=== PATIENT | male | born 1980 | race Hispanic/Latino ===

== ENCOUNTER 2017-11-06 23:36 | Emergency (ER) | payer OTHER, SELFPAY ==
[2017-11-07 00:06] LABS: Absolute Lymphocytes (CBC) 3.1 K/uL (0.7-4.9); Absolute Neutrophil 6.2 K/uL (1.8-8.0); Basophils % 0.3 % (0-1.3); Eosinophils % 2.9 % (0-4.4); Hematocrit 44.8 % (39.6-49.0); Lymphocytes % 29.2 % (15.3-44.8); MCH 31.7 pg (27.0-35.0); MCV 92.9 fL (80-100); MPV 9.8 fL (7.6-11.3); Monocytes % 9.1 % (3.3-12.3); RBC Red Blood Cell Count 4.83 M/uL (4.33-5.43)
[2017-11-07 00:27] LABS: BUN Blood Urea Nitrogen 14 mg/dL (7-18); Bicarbonate 27 mmol/L (21-32); Glucose Level 97 mg/dL (74-106); Potassium 4.2 mmol/L (3.5-5.1); Sodium Level 138 mmol/L (136-145); Troponin (Emerg Dept Use Only) < 0.02 ng/mL (0.0-0.045)
--- NOTE | 2017-11-07 00:45 | EDPHYS ---
Physician Documentation [facility] Name: Gerard العراقي Age: 37 yrs Sex: Male : 1980 Arrival Date: 11/06/2017 Time: 23:36 Bed 24 Private MD: ED Physician Jaime Garibay HPI: 11/06 23:52 This 37 yrs old Male presents to ER via Unassigned with complaints of Chest rn Pain > 30 y/o. 23:52 The patient or guardian reports chest pain that is located primarily in the anterior rn chest wall, right. The pain does not radiate. Associated signs and symptoms: Pertinent positives: shortness of breath, Pertinent negatives: abdominal pain, cough, diaphoresis, dizziness, headache, lower extremity pain, lower extremity swelling, lightheadedness, nausea, near syncope, palpitations, syncope, vomiting. The chest pain is described as sharp, stabbing. Duration: The patient or guardian reports a single episode, that is still ongoing. Severity of pain: At its worst the pain was moderate in the emergency department the pain is unchanged. The patient has experienced a previous episode. Reports right sided anterior chest pain since this AM, no fever/cough, mild sob, no trauma, no famhx of early cardiac problems, had some mid abd pain yesterday but went to bathroom and went away. . Historical: - Allergies: 23:59 No Known Allergies; aa1 - Home Meds: 23:59 None [Active]; aa1 - PMHx: 23:59 None; aa1 - PSHx: 23:59 None; aa1 - Immunization history:: Flu vaccine is not up to date. - Social history:: Smoking status: Patient/guardian denies using tobacco. - Family history:: not pertinent. - Ebola Screening: : No symptoms or risks identified at this time. - Hospitalizations: : No recent hospitalization is reported. ROS: 23:52 Constitutional: Negative for fever, chills, and weight loss, Eyes: Negative for injury, rn pain, redness, and discharge, Neck: Negative for injury, pain, and swelling, Cardiovascular: Negative for palpitations, and edema, Respiratory: Negative for cough, wheezing Abdomen/GI: Negative for abdominal pain, nausea, vomiting, diarrhea, and constipation, MS/Extremity: Negative for injury and deformity, Skin: Negative for injury, rash, and discoloration, Neuro: Negative for headache, weakness, numbness, tingling, and seizure. Exam: 23:52 Constitutional: This is a well developed, well nourished patient who is awake, alert, rn and in no acute distress. Head/Face: Normocephalic, atraumatic. Eyes: Pupils equal round and reactive to light, extra-ocular motions intact. Lids and lashes normal. Conjunctiva and sclera are non-icteric and not injected. Cornea within normal limits. Periorbital areas with no swelling, redness, or edema. Neck: Trachea midline, no thyromegaly or masses palpated, and no cervical lymphadenopathy. Supple, full range of motion without nuchal rigidity, or vertebral point tenderness. No Meningismus. Chest/axilla: Normal chest wall appearance and motion. Nontender with no deformity. No lesions are appreciated. Cardiovascular: Regular rate and rhythm with a normal S1 and S2. No gallops, murmurs, or rubs. Normal PMI, no JVD. No pulse deficits. Respiratory: Lungs have equal breath sounds bilaterally, clear to auscultation and percussion. No rales, rhonchi or wheezes noted. No increased work of breathing, no retractions or nasal flaring. Abdomen/GI: Soft, non-tender, with normal bowel sounds. No distension or tympany. No guarding or rebound. No evidence of tenderness throughout. Skin: Warm, dry with normal turgor. Normal color with no rashes, no lesions, and no evidence of cellulitis. MS/ Extremity: Pulses equal, no cyanosis. Neurovascular intact. Full, normal range of motion. Equal circumference. Neuro: Awake and alert, GCS 15, oriented to person, place, time, and situation. Cranial nerves II-XII grossly intact. Motor strength 5/5 in all extremities. Sensory grossly intact. Cerebellar exam normal. Normal gait. Vital Signs: 23:48 BP 172 / 106; Pulse 66; Resp 16; Temp 97.7; Pulse Ox 96% on R/A; Weight 97.52 kg; aa1 Height 5 ft. 11 in. (180.34 cm); Pain 8/10; 11/07 00:53 BP 104 / 82; Pulse 59; Resp 16; Pulse Ox 98% on R/A; Pain 5/10; aa1 11/06 23:48 Body Mass Index 29.99 (97.52 kg, 180.34 cm) aa1 MDM: 11/06 23:46 Patient medically screened. rn 11/07 00:43 Differential diagnosis: acute myocardial infarction, acute pericarditis, anxiety, rn coronary artery disease chest wall pain, esophagitis, gastritis, gastroesophageal reflux disease (GERD), pleurisy, pneumothorax, pulmonary embolus. Data reviewed: vital signs, nurses notes, lab test result(s), EKG, radiologic studies, plain films, and as a result, I will discharge patient. Counseling: I had a detailed discussion with the patient and/or guardian regarding: the historical points, exam findings, and any diagnostic results supporting the discharge/admit diagnosis, the presence of at least one elevated blood pressure reading (>120/80) during this emergency department visit, lab results, radiology results, the need for outpatient follow up, to return to the emergency department if symptoms worsen or persist or if there are any questions or concerns that arise at home. Special discussion: I discussed with the patient/guardian in detail that at this point there is no indication for admission to the hospital. It is understood, however, that if the symptoms persist or worsen the patient needs to return immediately for re-evaluation. Based on the history and exam findings, there is no indication for further emergent testing or inpatient evaluation. I discussed with the patient/guardian the need to see the primary care provider for further evaluation of the symptoms. ED course: Pt with normal d-dimer, neg trop, ECG shows LVH but no ischemia, will dc home with OTC meds and pcp/cardiology f/u if symptoms do not improve. BP improved without medication/intervention. . 11/06 23:52 Order name: CBC with Diff; Complete Time: 00:13 rn 11/06 23:52 Order name: Basic Metabolic Panel; Complete Time: 00:27 rn 11/06 23:52 Order name: D-Dimer; Complete Time: 00:13 rn 11/06 23:52 Order name: Troponin (emerg Dept Use Only); Complete Time: 00:27 rn 11/06 23:52 Order name: EKG; Complete Time: 23:52 rn 11/06 23:52 Order name: XRAY Chest Pa And Lat (2 Views) rn 11/06 23:52 Order name: IV Start; Complete Time: 23:55 rn 11/06 23:52 Order name: EKG - Nurse/Tech; Complete Time: 23:52 rn Administered Medications: No medications were administered Disposition: 11/07/17 00:45 Discharged to Home. Impression: Chest pain, unspecified. - Condition is Stable. - Discharge Instructions: Nonspecific Chest Pain, Chest Wall Pain. - Medication Reconciliation Form, Thank You Letter, Antibiotic Education, Prescription Opioid Use form. - Follow up: Private Physician; When: As needed; Reason: Recheck today's complaints, Re-evaluation by your physician. - Problem is new. - Symptoms are unchanged. Signatures: Dispatcher [employer] EDMS Reina Turpin RN RN aa1 Jaime Garibay MD MD employee benefits attorney: (The following items were deleted from the chart) 00:55 00:45 11/07/2017 00:45 Discharged to Home. Impression: Chest pain, unspecified. aa1 Condition is Stable. Forms are Medication Reconciliation Form, Thank You Letter, Antibiotic Education, Prescription Opioid Use. Follow up: Private Physician; When: As needed; Reason: Recheck today's complaints, Re-evaluation by your physician. Problem is new. Symptoms are unchanged. rn
--- NOTE | 2017-11-07 00:45 | ER ---
Nurse's Notes [facility] Name: Gerard العراقي Age: 37 yrs Sex: Male : 1980 Arrival Date: 11/06/2017 Time: 23:36 Bed 24 Private MD: Diagnosis: Chest pain, unspecified Presentation: 11/06 23:48 Presenting complaint: Patient states: he woke up this morning with a sharp pain in his aa1 R upper chest. Denies injury. Reports pain is aggravated with ROM of R arm and radiates to back. Denies fever, cough, SOB or N/V. Transition of care: patient was not received from another setting of care. Onset of symptoms was November 06, 2017. Risk Assessment: Do you want to hurt yourself or someone else? Patient reports no desire to harm self or others. Initial Sepsis Screen: Does the patient meet any 2 criteria? No. Patient's initial sepsis screen is negative. Does the patient have a suspected source of infection? No. Patient's initial sepsis screen is negative. Care prior to arrival: None. 23:48 Method Of Arrival: Ambulatory aa1 23:48 Acuity: POLI 3 aa1 Historical: - Allergies: 23:59 No Known Allergies; aa1 - Home Meds: 23:59 None [Active]; aa1 - PMHx: 23:59 None; aa1 - PSHx: 23:59 None; aa1 - Immunization history:: Flu vaccine is not up to date. - Social history:: Smoking status: Patient/guardian denies using tobacco. - Family history:: not pertinent. - Ebola Screening: : No symptoms or risks identified at this time. - Hospitalizations: : No recent hospitalization is reported. Screenin:50 Abuse screen: Denies threats or abuse. Denies injuries from another. Nutritional aa1 screening: No deficits noted. Tuberculosis screening: No symptoms or risk factors identified. Fall Risk None identified. Assessment: 23:50 General: Appears in no apparent distress. comfortable, Behavior is calm, cooperative, aa1 appropriate for age. Pain: Complains of pain in right clavicle and anterior aspect of right upper chest Pain radiates to back Pain currently is 8 out of 10 on a pain scale. Quality of pain is described as sharp, Pain began this morning Is continuous, Aggravated by repositioning. Neuro: Level of Consciousness is awake, alert, obeys commands, Oriented to person, place, time, situation, Moves all extremities. Full function Gait is steady, Speech is normal. Cardiovascular: Reports chest pain, Denies diaphoresis, lightheadedness, nausea, palpitations, shortness of breath, Heart tones S1 S2 present Capillary refill < 3 seconds Clubbing of nail beds is absent JVD is absent Patient's skin is warm and dry. Rhythm is regular Chest pain is described as vague, is located in right anterior chest wall. Respiratory: Airway is patent Respiratory effort is even, unlabored, Respiratory pattern is regular, symmetrical, Breath sounds are clear bilaterally. GI: No signs and/or symptoms were reported involving the gastrointestinal system. : No signs and/or symptoms were reported regarding the genitourinary system. EENT: No signs and/or symptoms were reported regarding the EENT system. Derm: Skin is intact, is healthy with good turgor, Skin is pink, warm \T\ dry. 11/07 00:53 Reassessment: Patient appears in no apparent distress at this time. Patient is alert, aa1 oriented x 3, equal unlabored respirations, skin warm/dry/pink. Discussed d/c \T\ f/u instructions with pt \T\ spouse; denies questions or concerns at this time Patient states feeling better. Vital Signs: 11/06 23:48 BP 172 / 106; Pulse 66; Resp 16; Temp 97.7; Pulse Ox 96% on R/A; Weight 97.52 kg; aa1 Height 5 ft. 11 in. (180.34 cm); Pain 8/10; 11/07 00:53 BP 104 / 82; Pulse 59; Resp 16; Pulse Ox 98% on R/A; Pain 5/10; aa1 11/06 23:48 Body Mass Index 29.99 (97.52 kg, 180.34 cm) aa1 ED Course: 11/06 23:36 Patient arrived in ED. am2 23:46 Jaime Garibay MD is Attending Physician. rn 23:48 Arm band placed on right wrist. Patient placed in an exam room, on a stretcher. aa1 23:50 Patient has correct armband on for positive identification. Placed in gown. Bed in low aa1 position. Call light in reach. radiation monitor on. Pulse ox on. NIBP on. 23:50 EKG done, by ED staff, reviewed by Jaime Garibay MD. Initial lab(s) drawn, by ED staff, aa1 sent to lab. Inserted saline lock: 20 gauge in left antecubital area, using aseptic technique. Blood collected. Patient maintains SpO2 saturation greater than 95% on room air. 23:52 Reina Turpin, RN is Primary Nurse. aa1 23:58 Triage completed. aa1 11/07 00:04 Patient moved to radiology via wheelchair. az 00:04 X-ray completed. Patient tolerated procedure well. az 00:09 XRAY Chest Pa And Lat (2 Views) In Process Unspecified. EDMS 00:53 No provider procedures requiring assistance completed. IV discontinued, intact, aa1 bleeding controlled, No redness/swelling at site. Pressure dressing applied. Administered Medications: No medications were administered Outcome: 00:45 Discharge ordered by . rn 00:53 Discharged to home ambulatory, with significant other. aa1 00:53 Condition: good 00:53 Discharge instructions given to patient, significant other, Instructed on discharge instructions, follow up and referral plans. Demonstrated understanding of instructions, follow-up care. 00:55 Patient left the ED. aa1 Signatures: Dispatcher [employer] EDMS Reina Turpin, FELECIA IZQUIERDO aa1 Jaime Garibay MD MD rn Moreno, Amanda amCharisse Kinsey dc
[2017-11-07 01:00] VITALS: TEMP 97.7
[2017-11-07 01:01] VITALS: BP 104/82; O2SAT 98
--- NOTE | 2017-11-07 06:47 | EKG ---
Test Date: 2017-11-06 Test Time: 23:52:11 Vending Machine Filler: MICHAEL MEASUREMENT RESULTS: Intervals: Rate: 62 TX: 146 QRSD: 88 QT: 402 QTc: 408 [place]: P: 13 TX: 146 QRS: 6 T: -2 INTERPRETIVE STATEMENTS: Normal sinus rhythm Voltage criteria for left ventricular hypertrophy Abnormal ECG No previous ECG available for comparison Electronically Signed On 11-07-17 06:47:07 CDT by Job La
--- NOTE | 2017-11-07 08:29 | RAD REPORT ---
EXAM DESCRIPTION: RAD - Chest Pa And Lat (2 Views) - 11/07/2017 12:08 am CLINICAL HISTORY: CHEST PAIN Chest pain. COMPARISON: No comparisons FINDINGS: The lungs are clear. The heart is normal in size. No displaced fractures. IMPRESSION: No acute or concerning finding suspected.
== END 2017-11-07 00:55 | disposition home or self-care (01) ==
LOC: ER 23:36
DX: R07.9 Chest pain, unspecified (principal)
CPT/HCPCS: 36415; 71046; 80048; 84484; 85025; 85379; 93005; 99285

== ENCOUNTER 2020-10-16 18:03 | Emergency (ER) | payer SELFPAY ==
--- NOTE | 2020-10-16 20:17 | ER ---
Nurse's Notes [facility] Name: Gerard العراقي Age: 40 yrs Sex: Male : 1980 Arrival Date: 10/16/2020 Time: 18:07 Bed DX1 Private MD: Diagnosis: Cutaneous abscess of hand-left Presentation: 10/16 18:24 Chief complaint: Patient states: splinter to palm of L hand x 7 days. Coronavirus ss screen: Client denies travel out of the [place] in the last 14 days. Ebola Screen: Patient denies exposure to infectious person. Patient denies travel to an Ebola-affected area in the 21 days before illness onset. Initial Sepsis Screen: Does the patient meet any 2 criteria? No. Patient's initial sepsis screen is negative. Does the patient have a suspected source of infection? No. Patient's initial sepsis screen is negative. Risk Assessment: Do you want to hurt yourself or someone else? Patient reports no desire to harm self or others. Onset of symptoms was October 08, 2020. 18:24 Method Of Arrival: Ambulatory ss 18:24 Acuity: POLI 4 ss Historical: - Allergies: 18:25 No Known Allergies; ss - PMHx: 18:25 None; ss - Immunization history:: Adult Immunizations unknown, Client reports having NOT received the Covid vaccine. Last tetanus immunization: unknown. - Social history:: Smoking status: Patient denies any tobacco usage or history of. Screenin:38 Abuse screen: Denies threats or abuse. Denies injuries from another. Nutritional ss screening: No deficits noted. Tuberculosis screening: Never had TB. Fall Risk None identified. Assessment: 18:38 General: Appears in no apparent distress. comfortable, Behavior is calm, cooperative, ss Denies fever, feeling ill, fatigue, chills. Pain: Complains of pain in inner aspect of left palm Pain currently is 8 out of 10 on a pain scale. Quality of pain is described as tender, Pain began 1 week ago Is continuous, Aggravated by palpation. Neuro: Level of Consciousness is awake, alert, obeys commands, Oriented to person, place, time, situation, Smudger are equal bilaterally. Cardiovascular: Capillary refill < 3 seconds is brisk in bilateral fingers Patient's skin is warm and dry. Respiratory: No deficits noted. GI: No deficits noted. No signs and/or symptoms were reported involving the gastrointestinal system. EENT: Nares are clear Throat is clear. Derm: No signs and/or symptoms reported regarding the dermatologic system. Skin is healthy with good turgor. Injury Description: small abscess noted to palm of L hand. Pt reports a wooden splinter became lodged in area 1 week ago, but was unsuccessful removing FB. States that is became inflamed and "busted" this morning. 20:04 Reassessment: Patient appears in no apparent distress at this time. Neuro: Level of lp1 Consciousness is awake, alert, obeys commands. Respiratory: Respiratory effort is even, unlabored. Derm: Abscess located on palm of left hand is dime sized. Vital Signs: 18:24 Pulse 67; Resp 16; Temp 98.4(TE); Pulse Ox 97% on R/A; Weight 104.33 kg; Height 5 ft. ss 10 in. (177.80 cm); Pain 8/10; 18:25 BP 153 / 96; ss 18:24 Body Mass Index 33.00 (104.33 kg, 177.80 cm) ED Course: 18:07 Patient arrived in ED. mr 18:25 Triage completed. ss 18:25 Arm band placed on right wrist. ss 18:38 Shaniqua Posadas, RN is Primary Nurse. ss 18:38 Patient has correct armband on for positive identification. Bed in low position. Call ss light in reach. 19:17 Jt Carrero PA is PHCP. cp 19:17 Adair Shanks MD is Attending Physician. cp 20:04 Patient did not have IV access during this emergency room visit. lp1 20:16 Tommy Rhodes MD is Referral Physician. cp 20:33 Assist provider with foreign body removal of a splinter from left palm of hand Set up lp1 for procedure. Performed by Jt PINO Dressed with 4x4's, coband. Administered Medications: 20:04 Drug: Lidocaine-Epinephrine -1%: (1:100,000) 10 ml {Note: By Provider .} Volume: 20 ml; lp1 Route: Infiltration; 20:36 Drug: Bactrim (trimethoprim-sulfamethoxazole) (160 mg-800 mg (DS) 1 tablet Route: PO; bb 20:40 Follow up: Response: Medication administered at discharge. lp1 Outcome: 20:17 Discharge ordered by . cp 20:40 Discharged to home ambulatory. lp1 20:40 Condition: good 20:40 Discharge instructions given to patient, Instructed on discharge instructions, follow up and referral plans. medication usage, wound care, Demonstrated understanding of instructions, follow-up care, medications, wound care, Prescriptions given X 1. 20:40 Patient left the ED. lp1 Signatures: Micaela Michaud Brenda RN RN bb Shaniqua Posadas RN RN Merle Gonzalez RN RN lp1 Jt Carrero, PA PA cp
--- NOTE | 2020-10-16 20:17 | EDPHYS ---
Physician Documentation [facility] Name: Gerard العراقي Age: 40 yrs Sex: Male : 1980 Arrival Date: 10/16/2020 Time: 18:07 Bed DX1 Private MD: ED Physician Adair Shanks HPI: 10/16 19:45 This 40 yrs old Male presents to ER via Ambulatory with complaints of Foreign cp Body, in Hand. 19:45 The patient or guardian reports the patient has a suspected foreign body, of the left cp hand. The reported likely foreign body is sliver of wood. Onset: The symptoms/episode began/occurred 1 week(s) ago. Current symptoms: foreign body sensation. Historical: - Allergies: 18:25 No Known Allergies; ss - PMHx: 18:25 None; ss - Immunization history:: Adult Immunizations unknown, Client reports having NOT received the Covid vaccine. Last tetanus immunization: unknown. - Social history:: Smoking status: Patient denies any tobacco usage or history of. ROS: 19:50 Constitutional: Negative for body aches, chills, fever. cp 19:50 MS/extremity: Positive for of the palm of left hand, possible foreign body, Negative for decreased range of motion, paresthesias. 19:50 All other systems are negative. Exam: 19:55 Constitutional: The patient appears in no acute distress, alert, awake, non-toxic, well cp developed, well nourished. 19:55 Head/Face: Normocephalic, atraumatic. cp 19:55 Chest/axilla: Inspection: normal. cp 19:55 Cardiovascular: Rate: normal. 19:55 Respiratory: the patient does not display signs of respiratory distress, Respirations: normal. 19:55 Skin: abscess, that is small, of the palm of left hand proximal to index finger, with fluctuance, that is mild. Vital Signs: 18:24 Pulse 67; Resp 16; Temp 98.4(TE); Pulse Ox 97% on R/A; Weight 104.33 kg; Height 5 ft. ss 10 in. (177.80 cm); Pain 8/10; 18:25 BP 153 / 96; ss 18:24 Body Mass Index 33.00 (104.33 kg, 177.80 cm) ss MDM: 19:19 Patient medically screened. cp 20:15 ED course: Area anesthetized with 3 ccs of 1% lidocaine with epis. Skin cleaned with cp betadine. Abscess lanced with #11 blade and small amount purulent material expressed. Area explored and no foreign body noted. Wound cleaned, irrigated and dressed. 20:17 Data reviewed: vital signs, nurses notes. cp 20:17 Counseling: I had a detailed discussion with the patient and/or guardian regarding: the cp historical points, exam findings, and any diagnostic results supporting the discharge/admit diagnosis, to return to the emergency department if symptoms worsen or persist or if there are any questions or concerns that arise at home. Response to treatment: the patient's symptoms have mildly improved after treatment, and as a result, I will discharge patient. 10/16 19:39 Order name: Dressing - Wound; Complete Time: 20:33 cp 10/16 19:39 Order name: Gloves, Sterile; Complete Time: 20:33 cp 10/16 19:39 Order name: Setup Suture Tray; Complete Time: 20:33 cp Administered Medications: 20:04 Drug: Lidocaine-Epinephrine -1%: (1:100,000) 10 ml {Note: By Provider .} Volume: 20 ml; lp1 Route: Infiltration; 20:36 Drug: Bactrim (trimethoprim-sulfamethoxazole) (160 mg-800 mg (DS) 1 tablet Route: PO; bb 20:40 Follow up: Response: Medication administered at discharge. lp1 Disposition: 20:30 Chart complete. cp Disposition Summary: 10/16/20 20:17 Discharge Ordered Location: Home cp Problem: new cp Symptoms: have improved cp Condition: Stable cp Diagnosis - Cutaneous abscess of hand - left cp Followup: cp - With: Tommy Rhodes MD - When: 2 - 3 days - Reason: Worsening of condition Discharge Instructions: - Discharge Summary Sheet cp - Skin Abscess cp Forms: - Medication Reconciliation Form cp - Thank You Letter cp - Antibiotic Education cp - Prescription Opioid Use cp Prescriptions: - Bactrim DS 800-160 mg Oral Tablet - take 1 tablet by ORAL route every 12 hours for 10 days; 20 tablet; Refills: 0, cp Product Selection Permitted Signatures: Daisy Guardado RN RN bb Shaniqua Posadas RN RN ss Merle Gonzalez RN RN lp1 Page, Jt, PA PA cp
[2020-10-16] MEDS ORDERED: LIDOCAINE 1% MPF 5 ML VIAL ONE (20:18)
[2020-10-16] MEDS ORDERED: LIDOCAINE 1% W/EPI 1:100,000 MDV 20 ML VIAL ONE (20:19)
[2020-10-16 20:48] VITALS: TEMP 98.4; O2SAT 97
[2020-10-16 20:49] VITALS: BP 153/96
[2020-10-16] MEDS ORDERED: SMZ./TMP. 800/160 MG TABLET ONE (20:58)
== END 2020-10-16 20:40 | disposition home or self-care (01) ==
LOC: ER 18:03
PROC: 0J9K0ZZ Drainage of Left Hand Subcutaneous Tissue and Fascia, Open Approach (ICD-10-PCS; principal; 2020-10-16)
DX: L02.512 Cutaneous abscess of left hand (principal)
CPT/HCPCS: 99283